=== PATIENT | male | born 1975 | race Native Hawaiian/Other Pacific Islander ===

== ENCOUNTER 2018-06-03 08:44 | Outpatient (CLI) | payer BC | END 2018-06-03 19:14 | disposition home or self-care (01) | LOC: RESP 08:44 | DX: Z01.810 Encounter for preprocedural cardiovascular examination (principal); Z01.811 Encounter for preprocedural respiratory examination; Z01.812 Encounter for preprocedural laboratory examination | CPT/HCPCS: 93005 ==